=== PATIENT | female | born 1960 | race Caucasian/White ===

== ENCOUNTER 2025-05-13 11:20 | Emergency (ER) | payer BC, SELFPAY ==
[2025-05-13] VITALS (9 sets, daily range): BP systolic 114–131; BP diastolic 62–78; PULSE 56–59
--- NOTE | 2025-05-13 12:32 | ED.GENMED ---
History of Present Illness
General
Chief Complaint: Weakness
Source: patient
Exam Limitations: none
Time Seen by Provider: 05/13/25 11:51
Nursing documentation reviewed up to this point in time: agreed with
History of Present Illness
History of Present Illness:
65-year-old female with history of a brain aneurysm with clipping, cholecystectomy, hernia repair, oral cancer HTN, HLD, anemia, depression presents for dizziness. [place] 'off' 3 days ago. Then intermittent dizziness past 2 days. Very fatigued also.
Has chronic fatigue and trouble sleeping, PCP aware, son at beside states she has been experiencing a lot of stress lately w daughter and grown grand daughter recently moving out. Pt has been working 'too much' day and night at [employer] in [employer]
dept. Pt states several times in past 2 days coworkers have had to assist her with ambulation as she is told she is listing to one side and appears unbalanced although pt denies feeling this way. Denies visual change, denies h/a.
Denies n/v/d/c/ denies CP, SOB. Had episode 2 days ago of right shoulder and upper arm pain that dissipated after a few hours. None since
Past History
Past History
ED Past Medical History: None, GERD, HTN, Hypercholesterolemia, Hypothyroidism and Psychiatric (depresssion was on Escitalopram 10 mg until 2 yrs ago, increased to 20 mg)
ED Past Surgical History: None, Cardiac (Cardiac catheterization with minimal stenosis seen in 2009) and Other
Social History
Tobacco: Smoker
Alcohol: None
Drug: None
Personal:
Living: with family
Employment: Employed
Family History
Family History: CAD
Review of Systems
Review of Systems
Allergies reviewed?: Yes
All Other Systems: ROS reviewed and negative except as documented in HPI and ROS
Constitutional: Reports fatigue; Denies fever
Respiratory: Denies trouble breathing
Cardiac: Denies chest pain
ABD/GI: Denies abdominal pain, nausea, vomiting, diarrhea, constipated or anorexia
: Denies dysuria, frequency, difficulty voiding or urgency
Musculoskeletal: Reports no symptoms
Skin: Reports no symptoms
Neurological: Reports dizzy; Denies headache, weakness or numbness
Psychiatric: Reports other (more stress lately)
Phy Exam
Physical Exam
Physical Exam:
GENERAL: No acute distress. A&Ox3.
CONSTITUTIONAL: Afebrile.
EYES: clear, conjunctivae normal
ENMT: moist mucus membranes, Pharynx nl
RESPIRATORY: Regular respirations, nonlabored, lungs clear.
CARDIOVASCULAR: Regular rate and rhythm, no murmurs, no rubs.
GI: Soft, nontender, normal BS
MUSCULOSKELETAL: Moves with ease. Well perfused.
SKIN: Warm, dry, pink
PSYCH: Normal mood and affect. Well kept, interactive and appropriate
NEUROLOGIC: Awake, alert and oriented. Speech clear. Cranial nerves II through XII intact. Finger-nose intact. No focal neurological deficits
Scores
NIH Stroke Score
Level of Consciousness: 0 - Alert
LOC Questions: 0-Answers both correctly
LOC Commands: 0-Performs both correctly
Best Horizontal Gaze: 0-Normal
Visual [place]: 0=Normal, no visual loss
Facial Palsy: 0=Normal, symmetrical
Motor - Right Arm: 0=No drift 10 seconds
Motor - Left Arm: 0=No drift 10 seconds
Motor - Right Le-No drift 5 seconds
Motor - Left Le-No drift 5 seconds
Limb Ataxia: 0-Absent
Sensation: 0-Normal
Best Language: 0-No aphasia
Dysarthria: 0-Normal
Extinction and Inattention: 0-No abnormality
NIH Total Score:: 0
Course
Orders/Labs/Results
Orders:
Orders
05/13/25 11:21
EKG [Electrocardiogram (*1)] Urgent
Reason for Study: Vertigo / Dizzy
EKG- Treatment ONCE
05/13/25 13:04
CT Head W/o Iv Contrast Urgent
Comment:
Reason For Exam: dizziness
Orthostatic VS- Treatment ONCE
05/13/25 13:34
Complete Blood Count/With Diff Urgent
Comprehensive Metabolic Panel Urgent
Free T4 Urgent
TSH Reflex To Free T4 Urgent
Troponin I Urgent
Abnormal Lab Results
05/13/25
13:34
MCHC 32.6 L g/dL
(33.0-37.0)
Chloride 108 H mmol/L
(98-107)
BUN 22 H mg/dl
(7-17)
TSH (Reflex) 7.49 H uIU/ml
(0.47-4.68)
05/13/25 13:34
05/13/25 13:34
Vital Signs
Initial and Last Documented VS:
Initial Vital Signs
Temp Pulse Resp BP Pulse Ox
98.1 F 56 16 123/78 96
05/13/25 11:26 05/13/25 11:26 05/13/25 11:26 05/13/25 11:26 05/13/25 11:26
Last Documented Vital Signs
Temp Pulse Resp BP Pulse Ox
98.1 F 61 14 119/72 94
05/13/25 11:26 05/13/25 15:30 05/13/25 15:30 05/13/25 14:00 05/13/25 14:15
MDM/Problems Addressed
Differential Diagnosis Includes:
dehydration, CVA, stress reaction, hypothyroid, BPPV, arrhythmia, hypotension
MDM/Problems Addressed:
65-year-old female with history of a brain aneurysm with clipping, cholecystectomy, hernia repair, oral cancer HTN, HLD, anemia, depression presents for dizziness. [place] 'off' 3 days ago. Then intermittent dizziness past 2 days. Very fatigued also.
Has chronic fatigue and trouble sleeping, PCP aware, son at beside states she has been experiencing a lot of stress lately w daughter and grown grand daughter recently moving out. Pt has been working 'too much' day and night at [employer] in [employer]
de[employer]. Pt states several times in past 2 days coworkers have had to assist her with ambulation as she is told she is listing to one side and appears unbalanced although pt denies feeling this way. Denies visual change, denies h/a.
Denies n/v/d/c/ denies CP, SOB. Had episode 2 days ago of right shoulder and upper arm pain that dissipated after a few hours. None since
NAD, normal neuro exam
Pt becomes tearful when speaking of increased stress recently for 'family issues' per son at bedside.
11:15 AM:
EKG: Sinus bradycardia heart rate 54
2:30 PM:
CBC normal
CMP with no clinically significant abnormality
Troponin normal
TSH elevated 7.[address] shows no acute abnormality
Orthostatics negative
3:15 p.m.
It is reassuring that her head CT is normal, her dizziness is intermittent, not there presently and not persistent which would be more consistent with acute neurologic disorder/CVA, NIH score 0.
Orthostatics negative, troponin normal, EKG unremarkable reassurance of not likely cardiac etiology
Primary hypothyroid high TSH, normal T4. With TSH slightly elevated, <10, will refer pt to her PCP tomorrow for Levothyroxine adjustment.
This along with increased family stress and over working may be contributing to symptoms.
Pt ambulated out with normal gait with her son
*Pulse Oximetry
SaO2: 96
Oxygen Mode of Delivery: Room air
Patient hypoxic: not evaluated
*EKG
EKG Intrepretation Date: 05/13/25
Interpretation: abnormal
Heart Rate: 54
Rate: bradycardiac
Rhythm: sinus
[place]: normal axis
Interval: normal interval
QRS Pattern: normal QRS
Ischemia: no ischemia
*Critical Care Note
Total Time (30-74mins, 75-104mins- exclusive of procedures): Not Applicable
ED Attending Note
-
Portions of this chart may have been created with voice recognition software.� Occasional wrong word or��sound alike� substitutions may have occurred due to the inherent limitations of voice recognition software.
Discharge Plan
Departure
Patient Disposition: Home (Routine Discharge)
Date of Disposition: 05/13/25
Time of Disposition: 15:13
Patient with high blood pressure during this ER visit?: No
Condition: Fair
Discharge Problem:
Stress at home, Hypothyroid
Instructions: Hypothyroidism (underactive thyroid), Coping with worry and stress, Fatigue - ED discharge instructions
Prescriptions:
No Action
amlodipine 5 MG tablet
10 mg PO QPM
Lactobac 2-Bifido 1-S. therm [High Potency Probiotic] 1 CAP capsule
1 cap PO QPM
Referrals:
Daphnie Diaz DO [Family Provider, Family Practice] - Tomorrow
Stand Alone Forms: Return to Work
Activity Restrictions/Additional Instructions:
As we discussed, nothing worrisome in your workup here today. Specifically your head CT is normal, your blood work is unremarkable save for a mildly elevated TSH.
No sign of injury to your heart (heart attack).
Call your family doctor tomorrow to discuss the possibility of having to adjust your thyroid medication
Discuss out pt MRI for dizziness
You may want to consider less stressful work schedule. Regular exercise, start by taking a nice walk 20 minutes 3 times a week and work up to daily or at least 5 days a week.
Interventions
Interventions:
*Risk Screen - Suicide Last Done: 05/13/25 11:26
*General Assessment Last Done: 05/13/25 15:15
*Neglect/Abuse Screening Last Done: 05/13/25 11:26
*ED- Fall Risk Assessment Last Done: 05/13/25 15:15
*ED COVID-19 Vaccine History Last Done: 05/13/25 15:15
*Nursing Disposition Last Done: 05/13/25 16:53
ED- Cardiac Assessment Last Done: 05/13/25 15:15
ED- Neurological Assessment Last Done: 05/13/25 15:15
ED- Pulmonary Assessment Last Done: 05/13/25 15:15
Discharge Date and Time
Discharge Date/Time: 05/13/25 16:00
Print Language: [id number]
[2025-05-13 13:45] LABS: Hematocrit 39.9 % (37.0-47.0); Hemoglobin 13.0 g/dL (12.0-16.0); Mean Corp Hgb Conc. 32.6 g/dL (33.0-37.0); Mean Corpuscular Volume 89.3 fL (81.0-99.0); Nucleated Red Blood Cells % 0 %; Platelet Count 274 10^3/uL (130-400); Red Cell Dist. Width 13.8 % (11.5-14.5)
[2025-05-13 14:01] LABS: ALT (SGPT) 12 U/L (0-35); AST (SGOT) 15 U/L (14-36); Albumin 4.1 g/dl (3.5-5.0); Alkaline Phosphatase 84 U/L (38-126); Blood Urea Nitrogen 22 mg/dl (7-17); Calcium 9.1 mg/dl (8.4-10.2); Carbon Dioxide 26 mmol/L (22-30); Chloride 108 mmol/L (98-107); Glucose 93 mg/dl (70-99); Potassium 3.9 mmol/L (3.5-5.1); Sodium 140 mmol/L (135-145); Total Protein 6.9 g/dl (6.3-8.2); eGFR > 60.00
[2025-05-13 14:08] LABS: Troponin I < 0.012 ng/ml
== END 2025-05-13 16:00 | disposition home or self-care (01) ==
LOC: EMR 11:20
PROVIDERS: Registered Nurse; EMERGENCY PHYSICIAN Student in an Organized Health Care Education/Training Program; FAMILY PHYSICIAN Family Medicine
DX: F43.9 Reaction to severe stress, unspecified (principal); E03.9 Hypothyroidism, unspecified; R00.1 Bradycardia, unspecified; E78.00 Pure hypercholesterolemia, unspecified; I10 Essential (primary) hypertension; F17.200 Nicotine dependence, unspecified, uncomplicated; Z63.8 Other specified problems related to primary support group
CPT/HCPCS: 99284; 70450; 80053; 84439; 84443; 84484; 85025; 93005

== ENCOUNTER → 2025-06-15 13:24 | Outpatient (REF) | payer BC, SELFPAY | LOC: HWRAD 13:24 | PROVIDERS: ATTENDING PHYSICIAN Family Medicine | DX: M25.511 Pain in right shoulder (principal) | CPT/HCPCS: 73030 ==